=== PATIENT | male | born 1970 | race Caucasian/White ===

== ENCOUNTER 2016-12-18 10:29 | Emergency (ER) | payer MEDICAID ==
[~2016-12-18] VITALS: Ht 177.8 cm; Wt 83.9 kg
[2016-12-18 11:49] VITALS: BP 142/112
== END 2016-12-18 11:50 | disposition home or self-care (01) ==
LOC: ED 10:29
DX: S42.022A Displaced fracture of shaft of left clavicle, initial encounter for closed fracture (principal); W18.30XA Fall on same level, unspecified, initial encounter; Y93.61 Activity, american tackle football; Y92.89 Other specified places as the place of occurrence of the external cause; Y99.8 Other external cause status
CPT/HCPCS: Q0092